=== PATIENT | female | born 2000 | race Caucasian/White ===

== ENCOUNTER 2019-10-08 19:12 | Emergency (ER) | payer OTHER ==
[2019-10-08] MEDS ORDERED: Ketorolac Tromethamine 30 MG/ML VIAL ONE (20:31)
[2019-10-08] MEDS ORDERED: Morphine 4 MG/ML VIAL ONE (20:45)
[2019-10-08] MEDS ORDERED: Ondansetron ODT 4 MG TAB ONE (20:45)
== END 2019-10-08 22:15 | disposition home or self-care (01) ==
LOC: ERS 19:12
DX: S82.841A Displaced bimalleolar fracture of right lower leg, initial encounter for closed fracture (principal); V00.131A Fall from skateboard, initial encounter
CPT/HCPCS: 29515; 96372; J1885; J2270; Q0162